=== PATIENT | female | born 1975 | race Caucasian/White ===

== ENCOUNTER 2023-12-27 05:13 | Day surgery (SDC) | payer OTHER, SELFPAY ==
[2023-12-27] VITALS (13 sets, daily range): BP systolic 110–129; BP diastolic 57–80; PULSE 63–80; RESP 14–20; TEMP 36.2–37.2; O2SAT 100
--- NOTE | ~2023-12-27 | CT_ITS ---
EXAMINATION: CT abdomen pelvis w con DATE: 12/27/2023 07:35 INDICATION: Right lower quadrant abdominal pain TECHNIQUE: Computed tomography (CT) of the abdomen and pelvis was performed with 100 CC Omnipaque 350 intravenous contrast. Automated exposure control and iterative reconstruction technique were employe d. Exam dose: 277.20 mGy-cm total exam DLP. COMPARISON: None. FINDINGS: Bilateral breast implants are noted. Prominent pectus excavatum. The lung bases are clear of infiltrate or consolidation. Normal heart size. No pericardial or pleural effusion. The liver, gallbladder, bile ducts, spleen, pancreas, pancreatic duct, and adrenal glands and kidneys are unremarkable. Prominent appendicolith, appendiceal wall thickening and appendiceal dilatation and periappendiceal f at stranding and thickening of the lateral conal fascia are consistent with acute appendicitis. There is mild free fluid in the right cul-de-sac. Status post hysterectomy. The urinary bladder is un remarkable. No bowel obstruction or intraperitoneal free air is detected. No suspicious osteolytic or osteoblastic lesions. IMPRESSION: Acute appendicitis Reviewed, dictated and finalized at [facility] Reviewed, dictated and finalized at [facility]. IMPRESSION: Acute appendicitis
[2023-12-27 05:48] LABS: Basophils Percent Auto 0.2 % (0.2-1.2); Eosinophils Percent Auto 0.2 % (0-4.4); Hematocrit 42.7 % (37.0-47.0); Hemoglobin 13.6 g/dL (12.0-15.0); Immature Granulocyte Absolute 0.03 K/mm3 (0.00-0.031); Immature Granulocyte Percent A 0.2 % (0-0.5); Lymphocytes Absolute Auto 1.15 K/mm3 (0.9-3.2); Lymphocytes Percent Auto 6.8 % (18.3-44.2); Mean Corpuscular HGB Conc 31.9 g/dl (32-36); Mean Corpuscular Volume 94.1 fl (80-100); Mean Platelet Volume 10.3 fl (7.4-10.4); Monocytes Absolute Auto 0.6 K/mm3 (0.1-0.6); Monocytes Percent Auto 3.4 % (2.6-8.5); Neutrophils Absolute Auto 15.1 K/mm3 (1.3-6.7); Neutrophils Percent Auto 89.2 % (45.5-73.1); Platelet Count Result 256 k/mm3 (150-375); Red Blood Count 4.54 M/mm3 (4.2-5.4); Red Cell Distribution Width 12.5 % (11.5-14.5); White Blood Count 16.9 K/mm3 (4.5-10.0)
[2023-12-27 05:51] LABS: Appearance Urine Clear (Clear); Bilirubin Urine Negative (Negative); Blood Urine Negative (Negative); Color Urine Yellow (Yellow); Glucose Urine UA Negative (Negative); Ketones Urine Trace mg/dL (Negative); Leukocyte Esterase Ur Negative LEU/UL (Negative); Nitrate Urine Negative (Negative); Protein Urine Negative (Negative); Specific Grav Ur 1.018 (1.001-1.035); Urobilinogen Urine 0.2 mg/dL (<2.0); pH Urine 6.5 (5.0-9.0)
[2023-12-27 05:57] LABS: Alanine Aminotransferase 27 U/L (6-35); Albumin Level 4.7 g/dL (3.5-5.1); Alkaline Phosphatase 54 U/L (38-126); Anion Gap 5 mmol/L (4-12); Aspartate Amino Transferase 38 U/L (14-36); Bilirubin,Total 0.7 mg/dL (0.2-1.3); Blood Urea Nitrogen 14 mg/dL (7-17); Calcium 9.8 mg/dL (8.4-10.2); Carbon Dioxide 28 mmol/L (22-30); Chloride 103 mmol/L (98-107); Estimated CRCL calculation 80 ml/min; Estimated Glomerular Filt Rate > 60; Glucose 137 mg/dL (65-110); Lipase 65 U/L (23-300); Potassium 3.7 mmol/L (3.4-5.0); Sodium 136 mmol/L (137-145)
[2023-12-27 06:00] LABS: Add Urine Microscopic? NO
[2023-12-27 06:27] LABS: Influenza A QL RT-PCR Negative (Negative); Influenza B QL RT-PCR Negative (Negative); RSV RNA, RT-PCR Negative (Negative); SARS-CoV-2 RNA PCR Negative (Negative)
--- NOTE | 2023-12-27 07:05 | ED.ABDPAIN ---
HPI - Abdominal Pain General Chief Complaint: Abdominal Pain Stated Complaint: abd pain, N/V Time Seen by Provider: 12/27/23 07:04 Source: patient History of Present Illness HPI narrative: 48 years old white female came to the emergency room by private car complaining of right lower quadrant pain started 8 hours ago. Associated with nausea, no vomiting or diarrhea. No history of abdominal surgery, currently on vitamins. She does not smoke or drink. Related Data Home Medications Medication Instructions Recorded Confirmed cetirizine 10 mg capsule (Zyrtec) 10 mg PO DAILY PRN 11/04/21 11/04/21 multivitamin with minerals 1 tablet PO DAILY 11/04/21 11/04/21 (Hair,Skin and Nails tablet) Allergies Allergy/AdvReac Type Severity Reaction Status Date / Time mold Allergy Unknown Unknown Verified 12/27/23 05:39 pollen extracts Allergy Unknown Unknown Verified 12/27/23 05:39 No Known Allergies Allergy Verified 12/27/23 05:39 Review of Systems Review of Systems: All systems reviewed & are unremarkable except as noted in HPI and below PMFSH Past Medical History Medical History Allergies Surgical History Surgical History History of partial hysterectomy History of surgery of uterus Cervical coniation S/P breast augmentation Family History Family History Grandparent Heart disease Cerebrovascular accident Social History Social History Smoking status: Never smoker Alcohol intake: current Substance use: never Do You Feel Safe in your Home?: Yes Lack of Transportation: No Lack of Food: Never True Current Housing: I Have Housing Concerned About Future Housing: No Difficulty Paying Gas/Electric Bills: No Difficulty Paying for Meds: No Currently Unemployed: No Education: Associate Degree Exam Narrative: General appearance: Well-developed, well-nourished Skin: Normal color Head: Normocephalic, nontraumatic Eyes: Clear conjunctiva ENT: Oropharynx normal, ears normal, nose normal Neck: Supple, nontender Chest and respiratory: Airway patent, no respiratory distress, no accessory muscle use Heart: Regular rate/rhythm Abdomen: Soft, do severe tenderness right lower quadrant, gardening, rebound, no organomegaly, quiet bowel sounds Vascular: Normal peripheral pulses, normal capillary refill. Musculoskeletal: Normal range of motion, nontender back Neurologic: Alert and oriented ?3, POWDER LINE REPAIRER is normal as tested, no gross motor deficit Course Reevaluation(s) Reevaluation #1: Pain improved after IV Dilaudid and Zofran Date: 12/27/23 Time: 08:40 Consultations Consultation #1: Dr. Gimenez Date: 12/27/23 Time: 08:41 Vital Signs Vital signs: Vital Signs Temperature 36.2 C L 12/27/23 05:13 Pulse Rate 66 12/27/23 05:13 Respiratory Rate 16 12/27/23 05:13 Blood Pressure 110/57 L 12/27/23 05:13 Pulse Oximetry 100 12/27/23 05:13 Oxygen Delivery Room Air 12/27/23 05:13 Temperature 37.2 C 12/27/23 08:10 Pulse Rate 78 12/27/23 08:10 Respiratory Rate 16 12/27/23 08:10 Blood Pressure 127/80 12/27/23 08:10 Pulse Oximetry 100 12/27/23 08:10 Oxygen Delivery Room Air 12/27/23 05:13 MDM - Abdominal Pain MDM Narrative Medical decision making narrative: Patient presents with right lower quadrant pain, Differential diagnosis appendicitis, diverticulitis, urinary tract infection, kidney stone, colitis, constipation Blood workup today showed WBC of 16.9 CT abdomen and pelvis
[2023-12-27] MEDS: HYDROmorphone HCL INJ (*CRX) 1 MG/ML SYR 0.5 MG IV PUSH (07:23)
[2023-12-27] MEDS: SODIUM CHLORIDE 0.9% IV 1,000 ML 999 ML IV CONT ×2 (07:23→08:59)
[2023-12-27] MEDS: ONDANSETRON INJ 4 MG/2 ML VIAL IV PUSH (07:24)
[2023-12-27] MEDS: PIPERACILLN/TAZ 3.375GM/NS50ML 3.375 GM/50 ML BAG IVPB (08:58)
--- NOTE | 2023-12-27 09:08 | WPDANESEPPF ---
Anes - Initial Pre Proc Eval Procedure: Operation Date: 12/27/23 09:30 Proposed Procedures p Laparoscopic Appendectomy - Jalil Gimenez MD Date/Time: 12/27/23 09:08 Surgeon: Jalil Gimenez MD Pre Op Diagnosis: abd pain, N/V Patient Data Age: 48 Gender: F Height: 1.68 m Weight: 59 kg Last Vital Signs Temp 37.2 C 12/27/23 08:10 Pulse 78 12/27/23 08:10 Resp 16 12/27/23 08:10 BP 127/80 12/27/23 08:10 Pulse Ox 100 12/27/23 08:10 O2 Del Method Room Air 12/27/23 05:13 Allergies Allergy/AdvReac Type Severity Reaction Status Date / Time mold Allergy Unknown Unknown Verified 12/27/23 05:39 pollen extracts Allergy Unknown Unknown Verified 12/27/23 05:39 No Known Allergies Allergy Verified 12/27/23 05:39 Home Medications Medication Instructions Recorded Confirmed Type cetirizine 10 mg capsule (Zyrtec) 10 mg PO DAILY PRN 11/04/21 11/04/21 History multivitamin with minerals 1 tablet PO DAILY 11/04/21 11/04/21 History (Hair,Skin and Nails tablet) Laboratory Tests 12/27/23 05:39 WBC 16.9 H K/mm3 (4.5-10.0) RBC 4.54 M/mm3 (4.2-5.4) Hgb 13.6 g/dL (12.0-15.0) Hct 42.7 % (37.0-47.0) MCV 94.1 fl (80-100) MCH 30.0 pg (26-34) MCHC 31.9 L g/dl (32-36) RDW 12.5 % (11.5-14.5) Plt Count 256 k/mm3 (150-375) MPV 10.3 fl (7.4-10.4) Immature Gran % (Auto) 0.2 % (0-0.5) Neut % (Auto) 89.2 H % (45.5-73.1) Lymph % (Auto) 6.8 L % (18.3-44.2) [place] % (Auto) 3.4 % (2.6-8.5) Eos % (Auto) 0.2 % (0-4.4) Baso % (Auto) 0.2 % (0.2-1.2) Lymph # (Auto) 1.15 K/mm3 (0.9-3.2) [place] # (Auto) 0.6 K/mm3 (0.1-0.6) Eos # (Auto) 0.0 K/mm3 (0-0.3) Baso # (Auto) 0.0 K/mm3 (0.0-0.1) Abs Immat Gran (auto) 0.03 K/mm3 (0.00-0.031) Absolute Neuts (auto) 15.1 H K/mm3 (1.3-6.7) Absolute Nucleated RBC 0.000 K/mm3 (0.0-0.012) Nucleated RBC % 0.0 % (0.0-0.2) Sodium 136 L mmol/L (137-145) Potassium 3.7 mmol/L (3.4-5.0) Chloride 103 mmol/L (98-107) Carbon Dioxide 28 mmol/L (22-30) Anion Gap 5 L mmol/L (4-12) BUN 14 mg/dL (7-17) Creatinine 0.70 mg/dL (0.7-1.0) Estim Creat Clear Calc 80 ml/min Estimated GFR > 60 (59 - ) Glucose 137 H mg/dL (65-110) Calcium 9.8 mg/dL (8.4-10.2) Total Bilirubin 0.7 mg/dL (0.2-1.3) AST 38 H U/L (14-36) ALT 27 U/L (6-35) Alkaline Phosphatase 54 U/L (38-126) Total Protein 7.0 g/dL (6.3-8.2) Albumin 4.7 g/dL (3.5-5.1) Lipase 65 U/L (23-300) Urine Color Yellow (Yellow) Urine Appearance Clear (Clear) Urine pH 6.5 (5.0-9.0) Ur Specific [place] 1.018 (1.001-1.035) Urine Protein Negative mg/dL (Negative) Urine Glucose (UA) Negative mg/dL (Negative) Urine Ketones Trace H mg/dL (Negative) Ur Blood (Man) Negative (Negative) Urine Nitrate Negative (Negative) Urine Bilirubin Negative (Negative) Urine Urobilinogen 0.2 mg/dL (<2.0) Leukocyte Esterase Rfl Negative [place]YNSEY/UL (Negative) Influenza A (RT-PCR) Negative (Negative) Influenza B (RT-PCR) Negative (Negative) RSV (RT-PCR) Negative (Negative) SARS-CoV-2 RNA (RT-PCR) Negative (Negative) Patient hx anesthesia problems: none Family hx anesthesia problems: none Results Review: All pre-operative results and documents have been reviewed as part of the pre-operative evaluation. [facility] Past Medical History Medical History Allergies Surgical History Surgical History History of partial hysterectomy History of surgery of uterus Cervical coniation S/P breast augmentation Family History Family History Grandparent Heart disease
--- NOTE | 2023-12-27 09:19 | WPDHPUPDATE1 ---
History and Physical Update Update Date/Time: 12/27/23 09:19 History and Physical has been reviewed, including an updated exam of the patient. There are NO changes in the patient's condition. Risks, benefits, and alternatives have been discussed and questions answered. Patient agrees to proceed with procedure.
--- NOTE | 2023-12-27 09:19 | PM.SD2 ---
Same Day Admit/Disch: HPI History of Present Illness Chief complaint: Acute appendicitis Narrative: Linette Wang is a 48 year old female who felt that there was something going on with her stomach for about 2 weeks. About midnight last night however she had mid abdominal pain that quickly moved to the right lower quadrant and just got worse. She was nauseated but did by vomit. She felt that she was feverish but did not take her temperature. Her right lower quadrant was extremely painful and exquisitely tender. She reports she almost passed out. She went to the emergency room. She was noted to have leukocytosis and exquisite tenderness in the right lower quadrant with guarding. Her CT scan showed acute appendicitis. She is taken to surgery now for laparoscopic appendectomy. [facility] Past Medical History Medical History Allergies Surgical History Surgical History History of partial hysterectomy History of surgery of uterus Cervical coniation S/P breast augmentation Family History Family History Grandparent Heart disease Cerebrovascular accident Social History Social History Smoking status: Never smoker Alcohol intake: current Substance use: never Do You Feel Safe in your Home?: Yes Lack of Transportation: No Lack of Food: Never True Current Housing: I Have Housing Concerned About Future Housing: No Difficulty Paying Gas/Electric Bills: No Difficulty Paying for Meds: No Currently Unemployed: No Education: Associate Degree Same Day Admit/Disch: Med Pre-admit Medications Home Medications Medication Instructions Recorded Confirmed Type cetirizine 10 mg capsule (Zyrtec) 10 mg PO DAILY PRN 11/04/21 11/04/21 History multivitamin with minerals 1 tablet PO DAILY 11/04/21 11/04/21 History (Hair,Skin and Nails tablet) ketorolac 10 mg tablet 10 mg PO Q6H 4 days #16 tabs 12/27/23 Rx oxycodone-acetaminophen 5 mg-325 0.5 - 1 tablet PO Q6H PRN pain #10 12/27/23 Rx mg tablet tabs Review of Systems Review of Systems All systems reviewed & are unremarkable except as noted in HPI and below (HPI and those items noted below) Constitutional Constitutional: Reports as per HPI, Reports chills and Reports fever(s) Cardiovascular Cardiovascular: Denies chest pain, Denies diaphoresis, Denies dyspnea and Denies paroxysmal nocturnal dyspnea Respiratory Respiratory: Denies chest congestion, Denies cough and Denies dyspnea Gastrointestinal Gastrointestinal: Reports as per HPI, Reports abdominal pain and Reports nausea Integumentary/Breasts Skin/Breast: Denies lesions and Denies rash DS: Data Data Completed and Pending Labs on day of discharge: Labs from last 24 hours 12/27/23 05:39 WBC 16.9 H RBC 4.54 Hgb 13.6 Hct 42.7 MCV 94.1 MCH 30.0 MCHC 31.9 L RDW 12.5 Plt Count 256 MPV 10.3 Immature Gran % (Auto) 0.2 Neut % (Auto) 89.2 H Lymph % (Auto) 6.8 L [place] % (Auto) 3.4 Eos % (Auto) 0.2 Baso % (Auto) 0.2 Lymph # (Auto) 1.15 [place] # (Auto) 0.6 Eos # (Auto) 0.0 Baso # (Auto) 0.0 Abs Immat Gran (auto) 0.03 Absolute Neuts (auto) 15.1 H Absolute Nucleated RBC 0.000 Nucleated RBC % 0.0 Sodium 136 L Potassium 3.7 Chloride 103 Carbon Dioxide 28 Anion Gap 5 L BUN 14 Creatinine 0.70 Estim Creat Clear Calc 80 Estimated GFR > 60 Glucose 137 H Calcium 9.8 Total Bilirubin 0.7 AST 38 H ALT 27 Alkaline Phosphatase 54 Total Protein 7.0 Albumin 4.7 Lipase 65 Urine Color Yellow Urine Appearance Clear Urine pH 6.5 Ur Specific [place] 1.018 Urine Protein Negative Urine Glucose (UA) Negative Urine Ketones Trace H Ur Blood (Man) Negative Urine Nitrate Negative Urine Bilirubin Negative Urine Urobilinogen 0.2 Leukocyte Ludivina
--- NOTE | 2023-12-27 09:26 | W.PM.PROC2 ---
Procedure Note - Detailed Date of Procedure 12/27/23 Pre-op Diagnosis Acute appendicitis Post-op Diagnosis Same Procedure Performed Laparoscopic appendectomy Surgeon Jalil Gimenez MD Free Lance Artist Jann WAGGONER Anesthesia General and Local Indications Patient started having severe abdominal pain that moved to the right lower quadrant last night about midnight. She was noted to have peritonitis with leukocytosis on exam. CT scan showed acute appendicitis. She is taken to surgery now for laparoscopic appendectomy. Findings Acute appendicitis,gangrenous distal half Description of Procedure Patient was taken to surgery and induced into general anesthesia. Abdomen is prepped and draped. Trocars were placed in the usual fashion using Edi.io optical trocars and a 5 mm camera. Patient was placed in Trendelenburg with the right-side elevated. The appendix was able to be via found easily and was elevated anteriorly. The distal half of the appendix was gangrenous but not perforated. Dissection of the mesoappendix was carried out and the appendiceal vessels including appendiceal artery were thoroughly cauterized and divided. The base of the appendix was skeletonized. A Vicryl endoloop was then used to ligate the appendix at its base. I amputated the appendix just above the ligature and cauterized the mucosa of the appendiceal stump. The appendix was placed immediately in an Endo-Catch bag. It was retrieved through the 10 11 left lower quadrant trocar. We then replaced the trocar and reviewed the areas of dissection as well as the appendiceal stump. All looked good with no sign of bleeding or other problems. We then evacuated CO2 and removed the trocar sleeves. Skin wounds were closed with subcuticular 4-0 Monocryl skin suture. The wounds were dressed with Exofin surgical adhesive. The patient was awakened and taken to recovery in good condition. Sponge needle counts were correct x2. Estimated Blood Loss -5 Drains No Packing No Pathology Yes (Appendix) Complications No immediate complications Condition Stable Disposition PACU [facility] Billing Surgery - Charge Forward: Surgery Billing (Laparoscopic appendectomy)
[2023-12-27] MEDS: BUPIVACAINE/EPINEPHRINE 0.5% 50 ML VIAL 30 ML INFILTRATE (09:44)
[2023-12-27] MEDS: LACTATED RINGERS 1,000 ML 30 ML IV CONT ×2 (10:10)
[2023-12-27] MEDS: oxyCODONE HCL (*CRX) 5 MG TAB IR PO (11:07)
== END 2023-12-27 12:02 | disposition home or self-care (01) ==
LOC: ANHED 08:42 → ANHSURGERY 08:57
PROVIDERS: Student in an Organized Health Care Education/Training Program; Emergency Provider Emergency Medicine; Visit Provider Surgery
PROC: 0DTJ4ZZ Resection of Appendix, Percutaneous Endoscopic Approach (ICD-10-PCS; CPT 44970; principal; 2023-12-27 09:30)
DX: K35.31 Acute appendicitis with localized peritonitis and gangrene, without perforation (principal); D72.829 Elevated white blood cell count, unspecified; Z98.890 Other specified postprocedural states; Z82.49 Family history of ischemic heart disease and other diseases of the circulatory system
CPT/HCPCS: 44970; 36415; 74177; 80053; 81003; 83690; 85025; 87637; 88304; 96361; 96374; 96375; 99285; A9270; J0330; J1100; J1170; J2405; J2543; J2704; J3010; J7030; J7120; Q9967

== ENCOUNTER 2025-03-07 14:07 | Outpatient (CLI) | payer BC, SELFPAY ==
--- NOTE | ~2025-03-07 | MM_ITS ---
EXAMINATION: MM scrn althea implant BI w ju HISTORY: Screening mammogram TECHNIQUE: Craniocaudal and mediolateral oblique 3-D tomosynthesis images with implant displacement a nd synthetic 2-D images were generated. Craniocaudal and mediolateral oblique views of the breasts wi thout implant displacement were obtained using full field digital mammography. CAD analysis was submi tted and interpreted. COMPARISON: No prior mammogram is available for comparison at this institution. BREAST PARENCHYMAL COMPOSITION: Dense: The breasts are extremely dense, which lowers the sensitivity of mammography. FINDINGS: There are no suspicious masses, calcifications or architectural distortion in the right huma ast to suggest malignancy. There is a focal asymmetry in the upper outer quadrant of the left breast, anterior third/periareolar location. There are bilateral saline implants. IMPRESSION: 1. Focal left breast asymmetry, upper outer quadrant, anterior third. 2. Additional mammographic views and possible breast ultrasound are recommended. BI-RADS Category 0: Incomplete: Needs additional imaging evaluation. Reviewed, dictated and finalized at location [] IMPRESSION: 1. Focal left breast asymmetry, upper outer quadrant, anterior third. 2. Additional mammographic views and possible breast ultrasound are recommended . BI-RADS Category 0: Incomplete: Needs additional imaging evaluation.
--- OUTSIDE RECORDS SUMMARY | 2025-03-07 15:27 | XMS_ITS | Encounter Summary ---
Author Organization [facility] Address [address] [place] [address] Care Team Providers Care Thermal Engineer Name Role Phone Alonso Silva DO Primary Care Provider Encounter Details Date Type Department Care Team (Late st Contact Info) Description 07/24/2008 Outpatient [facility] [address] [facility] [place] [address] [place] [id number] Alonso Silva DO [address] [place] [address] Routine General Medical Examination at a Health Care Facility Social History Tobacco Use Types Packs/Day Years Used Date Smoking Tobacco: Never Alcohol Use Standard Drinks/Week Comments No 0 (1 standard drink = 0.6 oz pur e alcohol) Comments No Sex and Gender Information Value Date Recorded Sex Assigned at Not on file Legal Sex Female 2:59 AM FONDANT COOKER Gender Identity Not on file Sexual Orientation Not on file documented as of this encounter Plan of Treatment Not on file documented as of this encounter Visit Diagnoses Diagnosis Routine general medical examination at a health care facility documented in this encounter Care Teams Thermal Engineer Relationship Specialty Start Date End Date Alonso Silva DO PCP - General 06/15/09 documented as of this encounter
--- OUTSIDE RECORDS SUMMARY | 2025-03-07 15:27 | XMS_ITS | Encounter Summary ---
Author Organization [facility] Address [address] [place] [address] Care Team Providers Care Gas Appliance Installer Name Role Phone Alonso Silva DO Primary Care Provider Encounter Details Date Type Department Care Team (Late st Contact Info) Description 06/21/2004 Outpatient Historical [facility] Glenn Sung MD [address] [place] [address] Social History Tobacco Use Types Packs/Day Years Used Date Smoking Tobacco: Never Assessed Comments Unknown Sex and Gender Information Value Date Recorded Sex Assigned at Not on file Legal Sex Female 2:59 AM BENCH HAND Gender Identity Not on file Sexual Orientation Not on file documented as of this encounter Plan of Treatment Not on file documented as of this encounter Visit Diagnoses Not on filedocumented in this encounter Care Teams Gas Appliance Installer Relationship Specialty Start Date End Date Alonso Silva DO PCP - General 06/15/09 documented as of this encounter
--- OUTSIDE RECORDS SUMMARY | 2025-03-07 15:27 | XMS_ITS | Encounter Summary ---
Author Organization [facility] Address [address] [place] [address] Care Team Providers Care Storage Battery Inspector And Tester Name Role Phone Alonso Silva DO Primary Care Provider Encounter Details Date Type Department Care Team (Latest Contact Info) Description 01/12/2002 Outpatient Historical [facility] [place] [address] [facility] [address] [place], [place] [id number] ANTEPARTUM HEMORR NOS-ANTEPAR (Primary Dx) Social History Tobacco Use Types Packs/Day Years Used Date Smoking Tobacco: Never Assessed Comments Unknown Sex and Gender Information Value Date Recorded Sex Assigned at Not on file Legal Sex Female 2:59 AM MANAGER WOUND Gender Identity Not on file Sexual Orientation Not on file documented as of this encounter Plan of Treatment Not on file documented as of this encounter Visit Diagnoses Diagnosis Unspecified antepartum hemorrhage, antepartum- Primary documented in this encounter Care Teams Storage Battery Inspector And Tester Relationship Specialty Start Date End Date Alonso Silva DO PCP - General 06/15/09 documented as of this encounter
--- OUTSIDE RECORDS SUMMARY | 2025-03-07 15:27 | XMS_ITS | Encounter Summary ---
Author Organization [facility] Address 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
--- OUTSIDE RECORDS SUMMARY | 2025-03-07 15:27 | XMS_ITS | Referral Summary ---
Author Organization [facility] Address [address] [place] [address] Care Team Providers Care Pencil Sorter Name Role Phone Waqar Renae MD Primary Care Provider [phone] Encounters Date Type Department Care Team Description 02/25/2025 12:00 PM CDT Office Visit [facility] [place] [address] [facility] [place] [address] Kelly Santiago NP Sore throat (Primary Dx) from Last 3 Months Allergies No known active allergies Medications apremilast (Otezla) 30 mg tablet Take 30 mg by mouth 2 (two) times a day Active cetirizine (ZyrTEC) 10 mg tablet Take 10 mg by mouth daily Active Active Problems Problem Noted Date Diagnosed Date Raynaud's disease, idiopathic 12/16/2021 Assessment & Plan (12/16/2021 4:46 PM CDT): Patient reports symptoms for the past 2-3 years, progressively worsening; will evaluate for possible other causes, starting with thyroid, follow-up with panel; no clear reason, will continue to monitor if treatment is required Other specified episodic mood disorder 8 Immunizations Immunization Administration Dates Next Due Influenza, Unspecified 12/16/2021(Deferr ed: Patient Refused),12/16/2021(Deferred: Patient Refused),09/28/2020(Deferred: Patient Refused),09/28/2020(Deferred: Patient Refused) Social History Tobacco Use Types Packs/Day Years Used Date Smoking Tobacco: Never Smokeless Tobacco: Never AUDIT-C Answer Date Recorded Q1: How often do you have a drink containing alc ohol? Monthly or less 12/16/2021 Q2: How many drinks containi ng alcohol do you have on a typical day when you are drinking? 1 or 2 12/16/2021 Q3: How often do you have si x or more drinks on one occasion? Never 12/16/2021 PHQ-2 Answer Date Recorded PHQ-2 Total Score (If total score is 3 or more points, staff should administer the PHQ-9) 0 12/16/2021 Exercise Vital Sign Answer Date Recorde d On average, how many days pe r week do you engage in moderate to strenuous exercise (like a brisk walk)? 4 days 12/16/2021 On average, how many minutes do you engage in exercise at this level? 30 min 12/16/2021 Comments Unknown Sex and Gender Information Value Date Recorded Sex Assigned at Not on file Legal Sex Female 4:18 PM FORESTRY CREW CHIEF Gender Identity Not on file Sexual Orientation Not on file Last Filed Vital Signs Vital Sign Reading Time Taken Comments Blood Pressure 122/60 02/25/2025 11:49 AM CDT Pulse 70 02/25/2025 11:49 AM CDT Temperature 36.9 C (98.4 F) 02/25/2025 11:49 AM CDT Respiratory Rate 16 02/25/2025 11:49 AM CDT Oxygen Saturation 99% 02/25/2025 11:49 AM CDT Inhaled Oxygen Concentration - - Weight 57.6 kg (127 lb) 02/25/2025 11:49 AM CDT Height 165.1 cm (5' 5) 02/25/2025 11:49 AM CDT Body Mass Index 21.13 02/25/2025 11:49 AM CDT Plan of Treatment Not on file Procedures Procedure Name Priority Date/Time Associated Diagnosis Comments POCT RAPID STREP Routine 02/25/2025 12:0 7 PM CDT Sore throat from Last 3 Months Results * POCT rapid strep A (02/25/2025 12:07 PM CDT) Rapid Strep A, POC Negative Negative Swab 02/25/2025 12:0 7 PM CDT Chloe Pamela RIB MATCHER AND FITTER POINT OF CARE TEST WINIFRED JUAREZ Final Result from Last 3 Months Insurance [facility] Care Teams Pencil Sorter Relationship Specialty Start Date End Date [place] [address] [address] [place] [id number] PCP - General Family Medicine 09/17/21
--- OUTSIDE RECORDS SUMMARY | 2025-03-07 15:27 | XMS_ITS | Encounter Summary ---
Author Organization [facility] Address [address] [place] [address] Care Team Providers Care Photoflash Powder Mixer Name Role Phone Alonso Silva DO Primary Care Provider Encounter Details Date Type Department Care Team (Late st Contact Info) Description 12/11/2006 Outpatient Historical [facility] Migel Garcia MD NO ADDRESS ON FILE Social History Tobacco Use Types Packs/Day Years Used Date Smoking Tobacco: Never Assessed Comments Unknown Sex and Gender Information Value Date Recorded Sex Assigned at Not on file Legal Sex Female 2:59 AM ACCOUNTS PAYABLE REPRESENTATIVE Gender Identity Not on file Sexual Orientation Not on file documented as of this encounter Plan of Treatment Not on file documented as of this encounter Visit Diagnoses Not on filedocumented in this encounter Care Teams Photoflash Powder Mixer Relationship Specialty Start Date End Date Alonso Silva DO PCP - General 06/15/09 documented as of this encounter
--- OUTSIDE RECORDS SUMMARY | 2025-03-07 15:27 | XMS_ITS | Encounter Summary ---
Author Organization [facility] Address [address] [place] [address] Care Team Providers Care Combining Machine Operator Name Role Phone Alonso Silva DO Primary Care Provider Encounter Details Date Type Department Care Team (Latest Contact Info) Description 03/18/2000 Outpatient Historical HIS [facility] DOLORES Costa II, [place] [address] [facility] [address] [place] [address] Supervision of other normal (Primary Dx) Social History Tobacco Use Types Packs/Day Years Used Date Smoking Tobacco: Never Assessed Comments Unknown Sex and Gender Information Value Date Recorded Sex Assigned at Not on file Legal Sex Female 2:59 AM PORTFOLIO LEAD Gender Identity Not on file Sexual Orientation Not on file documented as of this encounter Plan of Treatment Not on file documented as of this encounter Visit Diagnoses Diagnosis Supervision of other normal - Primary documented in this encounter Care Teams Combining Machine Operator Relationship Specialty Start Date End Date Alonso Silva DO PCP - General 06/15/09 documented as of this encounter
--- OUTSIDE RECORDS SUMMARY | 2025-03-07 15:27 | XMS_ITS | Encounter Summary ---
Author Organization [facility] Address [address] [place] [address] Care Team Providers Care Deck Officer Name Role Phone Alonso Silva DO Primary Care Provider Encounter Details Date Type Department Care Team (Latest Contact Info) Description 07/30/2003 Inpatient Historical HIS PATIENT IN A BED [facility] [address] 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
--- OUTSIDE RECORDS SUMMARY | 2025-03-07 15:27 | XMS_ITS | Encounter Summary ---
Author Organization [facility] Address [address] [place] [address] Care Team Providers Care Shear Grinder Operator Helper Name Role Phone Alonso Silva DO Primary Care Provider Encounter Details Date Type Department Care Team (Latest Contact Info) Description 05/14/2006 Inpatient Historical HIS [facility] Marcella Dunbar MD NO ADDRESS ON FILE Other Specified Genital Prolapse (Primary Dx) Social History Tobacco Use Types Packs/Day Years Used Date Smoking Tobacco: Never Assessed Comments Unknown Sex and Gender Information Value Date Recorded Sex Assigned at Not on file Legal Sex Female 2:59 AM SOCIAL WORK PROGRAM COORDINATOR Gender Identity Not on file Sexual Orientation Not on file documented as of this encounter Plan of Treatment Not on file documented as of this encounter Procedures Procedure Name Priority Date/Time Associated Diagnosis Comments HEMOGLOBIN AND HEMATOCRIT Routine 05/15/2006 4:30 PM CDT CBC WITH DIFFERENTIAL Routine 05/15/2006 5:20 AM CDT CBC WITH DIFFERENTIAL Routine 05/15/2006 5:20 AM CDT HEMOGLOBIN AND HEMATOCRIT Routine 05/14/2006 8:06 PM CDT POC , URINE Routine 05/14/2006 9:16 AM CDT HEMOGLOBIN AND HEMATOCRIT Routine 05/08/2006 1:59 PM CDT documented in this encounter Results * (ABNORMAL) HEMOGLOBIN AND HEMATOCRIT (05/15/2006 4:30 PM CDT) HEMOGLOBIN 11.6(L) 11.8 - 14.8 g/dL INTERFACE SYSTEM HEMATOCRIT 36.0 35.5 - 44.0 % INTERFACE SYSTEM 05/15/2006 4:30 PM CDT Marcella Dunbar MD HEMATOLOGY ORDERAB LES Final Result Performing Organization Address [facility] de Phone Number INTERFACE SYSTEM Refer to clinic/hospital department * (ABNORMAL) CBC WITH DIFFERENTIAL (05/15/2006 5:20 AM CDT) NEUTROPHILS 83(H) 45 - 70 % INTERFAC E SYSTEM LYMPHOCYTES 11(L) 16 - 45 % INTERFAC E SYSTEM MONOCYTES 6 3 - 13 % INTERFACE SYSTEM EOSINOPHILS 0 0 - 7 % INTERFAC E SYSTEM BASOPHILS 0 0 - 2 % INTERFACE SYSTEM NEUTROPHIL ABSOLUTE 8.70(H) 1.90 - 7.00 K/uL INTERFACE SYSTEM LYMPHOCYTE ABSOLUTE 1.13 0.70 - 4.50 K/uL INTERFACE SYSTEM MONOCYTE ABSOLUTE 0.61 0.10 - 1.30 K/uL INTERFACE SYSTEM EOSINOPHIL ABSOLUTE 0.00 0.00 - 0.70 K/uL INTERFACE SYSTEM BASOPHILS ABSOLUTE 0.01 0.00 - 0.20 K/uL INTERFACE SYSTEM 05/15/2006 5:20 AM CDT Tennille Baez HEMATOLOGY ORDERABLES Final Resu lt Performing Organization Address [facility] de Phone Number INTERFACE SYSTEM Refer to clinic/hospital department * (ABNORMAL) CBC WITH DIFFERENTIAL (05/15/2006 5:20 AM CDT) WBC 10.5(H) 4.0 - 9.8 K/uL INTERFACE SYSTEM RBC 4.01 3.90 - 4.90 M/uL INTERFACE SYSTEM HEMOGLOBIN 11.8 11.8 - 14.8 g/dL INTERFACE SYSTEM HEMATOCRIT 35.6 35.5 - 44.0 % INTERFACE SYSTEM MCV 88.8 82.0 - 99.0 fL INTERFACE SYSTEM MCH 29.4 27.2 - 32.6 pg INTERFACE SYSTEM MCHC 33.1 31.5 - 35.5 % INTERFACE SYSTEM RDW 12.5 11.5 - 14.5 % INTERFACE SYSTEM RDW-STDEV 40.5 37.1 - 48.7 fL INTERFACE SYSTEM PLATELETS 200 140 - 350 K/uL INTERFACE SYSTEM MPV 11.4 9.3 - 12.4 fL INTERFACE SYSTEM 05/15/2006 5:20 AM CDT Tennille Steelreba HEMATOLOGY ORDERABLES Final Resu lt Performing Organization Address City/[facility] Co de Phone Number INTERFACE SYSTEM Refer to clinic/hospital department * HEMOGLOBIN AND HEMATOCRIT (05/14/2006 8:06 PM CDT) HEMOGLOBIN 12.7 11.8 - 14.8 g/dL INTERFACE SYSTEM HEMATOCRIT 38.1 35.5 - 44.0 % INTERFACE SYSTEM 05/14/2006 8:06 PM CDT Tennille Nestor HEMATOLOGY ORDERABLES Final Resu lt Performing Organization Address City/[facility] Co de Phone Number INTERFACE SYSTEM Refer to clinic/hospital department * POC , URINE (05/14/2006 9:16 AM CDT) HCG QUAL URINE Negative Negative INTER FACE SYSTEM SPECIFIC GRAVITY UA 1.020 1.001 - 1.035 INTERFACE SYSTEM 05/14/2006 9:16 AM CDT Marcella Dunbar MD POINT OF CARE TEST ING Final Result Performing Organization Address [facility] Co de Phone Number INTERFACE SYSTEM Refer to clinic/hospital department * HEMOGLOBIN AND HEMATOCRIT (05/08/2006 1:59 PM CDT) HEMOGLOBIN 13.0 11.8 - 14.8 g/dL INTERFACE SYSTEM HEMATOCRIT 39.5 35.5 - 44.0 % INTERFACE SYSTEM 05/08/2006 1:59 PM CDT Marcella Dunbar MD HEMATOLOGY ORDERAB LES Final Result INTERFACE SYSTEM Refer to clinic/hospital department documented in this encounter Visit Diagnoses Diagnosis Other specified genital prolapse(618.89)- Primary Other specified genital prolapse documented in this encounter Care Teams Shear Grinder Operator Helper Relationship Specialty Start Date End Date Alonso Silva DO PCP - General 06/15/09 documented as of this encounter
--- OUTSIDE RECORDS SUMMARY | 2025-03-07 15:27 | XMS_ITS | Encounter Summary ---
Author Organization [facility] Address [address] [place] [address] Care Team Providers Care Gift Manager Name Role Phone Alonso Silva DO Primary Care Provider Encounter Details Date Type Department Care Team (Latest Contact Info) Description 04/19/2002 Inpatient Historical HIS PATIENT IN A BED [facility], [place] [address] [facility] [address] [place], [place] [id number] OTHER CURR COND-DELIVERED (Primary Dx) Social History Tobacco Use Types Packs/Day Years Used Date Smoking Tobacco: Never Assessed Comments Unknown Sex and Gender Information Value Date Recorded Sex Assigned at Not on file Legal Sex Female 2:59 AM DIRECTOR OPERATING ROOM Gender Identity Not on file Sexual Orientation Not on file documented as of this encounter Plan of Treatment Not on file documented as of this encounter Visit Diagnoses Diagnosis Other current maternal conditions classifiable elsewhere, with delivery- Primary documented in this encounter Care Teams Gift Manager Relationship Specialty Start Date End Date Alonso Silva DO PCP - General 06/15/09 documented as of this encounter
--- OUTSIDE RECORDS SUMMARY | 2025-03-07 15:27 | XMS_ITS | Encounter Summary ---
Author Organization [facility] Address [address] [place] [address] Care Team Providers Care Trade Show Manager Name Role Phone Alonso Silva DO Primary Care Provider Encounter Details Date Type Department Care Team (Latest Contact Info) Description 01/08/2007 Outpatient Historical HIS [facility] DOLORES [place], [place] [address] [place] [address] Lump or Mass in Breast (Primary Dx) Social History Tobacco Use Types Packs/Day Years Used Date Smoking Tobacco: Never Assessed Comments Unknown Sex and Gender Information Value Date Recorded Sex Assigned at Not on file Legal Sex Female 2:59 AM PROGRAM PLANNER Gender Identity Not on file Sexual Orientation Not on file documented as of this encounter Plan of Treatment Not on file documented as of this encounter Visit Diagnoses Diagnosis Lump or mass in breast- Primary documented in this encounter Care Teams Trade Show Manager Relationship Specialty Start Date End Date Alonso Silva DO PCP - General 06/15/09 documented as of this encounter
--- OUTSIDE RECORDS SUMMARY | 2025-03-07 15:27 | XMS_ITS | Encounter Summary ---
Author Organization [facility] Address [address] [place] [address] Care Team Providers Care Fixture Builder Name Role Phone Alonso Silva DO Primary Care Provider Encounter Details Date Type Department Care Team (Latest Contact Info) Description 10/10/1999 Outpatient Historical HIS [facility] DOLORES Costa II, [place] [address] [facility] [address] [place] [address] Supervision of other normal (Primary Dx) Social History Tobacco Use Types Packs/Day Years Used Date Smoking Tobacco: Never Assessed Comments Unknown Sex and Gender Information Value Date Recorded Sex Assigned at Not on file Legal Sex Female 2:59 AM MRI TECHNOLOGIST Gender Identity Not on file Sexual Orientation Not on file documented as of this encounter Plan of Treatment Not on file documented as of this encounter Visit Diagnoses Diagnosis Supervision of other normal - Primary documented in this encounter Care Teams Fixture Builder Relationship Specialty Start Date End Date Alonso Silva DO PCP - General 06/15/09 documented as of this encounter
--- OUTSIDE RECORDS SUMMARY | 2025-03-07 15:27 | XMS_ITS | Clinical Summary ---
Author Organization [facility] Address [address] [place] [address] Phone Care Team Providers Care Nurse Esthetician Name Role Phone Provider, None Primary Care Provider Unavailabl e Allergies No known active allergies Medications No known medications Social History Tobacco Use Types Packs/Day Years Used Date Smoking Tobacco: Never Smokeless Tobacco: Never Comments No Sex and Gender Information Value Date Recorded Sex Assigned at Not on file Legal Sex Female 9:27 AM CDT Gender Identity Not on file Sexual Orientation Not on file Last Filed Vital Signs Vital Sign Reading Time Taken Comments Blood Pressure 96/72 09/06/2020 3:55 PM INCIDENT HANDLER Pulse 63 09/06/2020 3:55 PM INCIDENT HANDLER Temperature 36.4 C (97.6 F) 09/06/2020 3:55 PM INCIDENT HANDLER Respiratory Rate - - Oxygen Saturation 95% 09/06/2020 3:55 PM INCIDENT HANDLER Inhaled Oxygen Concentration - - Weight - - Height - - Body Mass Index - - Plan of Treatment Health Maintenance Due Date Last Done Comments Hepatitis C Virus (HCV) Screening 1976 TdaP Immunization 1976 Hepatitis B Immunization (1 of 3 - 19+ 3-dose series) 1995 Cologuard 2021 Colonoscopy 2021 Colorectal Cancer Screening 2021 Immunochemical Fecal Occult Blood 2021 SARS-COV-2 Immunization ( - season) 2024 11/30/2020 Influenza Immunization (Seas on Ended) 2025 Respiratory Syncytial Virus (RSV) Immunization (Adult) (1 - 1-dose 75+ series) 2051 Human Papillomavirus (HPV) Immunization Aged Out No longer eligible b ased on patient's age to complete this topic Meningococcal Immunization (ACWY) Aged Out No longer eligible based on patient's age to complete this topic Pneumococcal Immunization Combined Aged Out No longer eligible based on patient's age to complete this topic Rotavirus Immunization Aged Out No lo nger eligible based on patient's age to complete this topic Insurance SHARED software design analyst Care Teams Nurse Esthetician Relationship Specialty Start Date End Date Provider, Doreen GUPTA PCP - General 09/06/20
--- OUTSIDE RECORDS SUMMARY | 2025-03-07 15:27 | XMS_ITS | Encounter Summary ---
Author Organization [facility] Address [address] [place] [address] Care Team Providers Care Inverform Machine Operator Name Role Phone Alonso Silva DO Primary Care Provider Encounter Details Date Type Department Care Team (Latest Contact Info) Description 03/15/2003 Outpatient Historical HIS PATIENT IN A BED [facility], [place] [address] [facility] [address] [place] [address] HEMORR EARLY PREG-ANTEPART (Primary Dx) Social History Tobacco Use Types Packs/Day Years Used Date Smoking Tobacco: Never Assessed Comments Unknown Sex and Gender Information Value Date Recorded Sex Assigned at Not on file Legal Sex Female 2:59 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
--- OUTSIDE RECORDS SUMMARY | 2025-03-07 15:27 | XMS_ITS | Encounter Summary ---
Author Organization [facility] Address [address] [place] [address] Care Team Providers Care Filling Station Equipment Mechanic Name Role Phone Alonso Silva DO Primary Care Provider Encounter Details Date Type Department Care Team (Latest Contact Info) Description 06/21/2003 Outpatient Historical HIS PATIENT IN A BED [place], Marcella Smiley MD [place] [address] [facility] [address] [place] [address] THRT NILSA LABOR-ANTEPART (Primary Dx) Social History Tobacco Use Types Packs/Day Years Used Date Smoking Tobacco: Never Assessed Comments Unknown Sex and Gender Information Value Date Recorded Sex Assigned at Not on file Legal Sex Female 2:59 AM STUDENT FINANCIAL SERVICES COUNSELOR Gender Identity Not on file Sexual Orientation Not on file documented as of this encounter Plan of Treatment Not on file documented as of this encounter Visit Diagnoses Diagnosis Threatened premature labor, antepartum(644.03)- Primary Threatened premature labor, antepartum documented in this encounter Care Teams Filling Station Equipment Mechanic Relationship Specialty Start Date End Date Alonso Silva DO PCP - General 06/15/09 documented as of this encounter
--- OUTSIDE RECORDS SUMMARY | 2025-03-07 15:27 | XMS_ITS | Clinical Summary ---
Author Organization [facility] Address [address] [place] [address] Care Team Providers Care Salad Maker Name Role Phone Alonso Silva DO Primary Care Provider Source Comments [facility],non-owned Affiliates and Associated Physician Practices is amultiple site organization consisting of ambulatory clinics and hospital sitesin [place], [place], [place] and [place]. This disclosure is being madepursuant to the Care Everywhere program and may not contain all information available regarding this patient. Last updated 18.[facility] Allergies No known active allergies Medications * Be aware that medications may not be up to date on this document. Alwaysverify current medications with the patient. No known medications Social History Tobacco Use Types Packs/Day Years Used Date Smoking Tobacco: Never Smokeless Tobacco: Never Comments Unknown Sex and Gender Information Value Date Recorded Sex Assigned at Not on file Legal Sex Female 1:08 PM VP HUMAN RESOURCES Gender Identity Not on file Sexual Orientation Not on file Last Filed Vital Signs Vital Sign Reading Time Taken Comments Blood Pressure 112/70 05/06/2017 12:46 PM CDT Pulse 62 05/06/2017 12:46 PM CDT Temperature 37 C (98.6 F) 05/06/2017 12:46 PM CDT Respiratory Rate - - Oxygen Saturation - - Inhaled Oxygen Concentration - - Weight 56.7 kg (125 lb) 05/06/2017 12:46 PM CDT Height 167.6 cm (5' 6) 05/06/2017 12:46 PM CDT Body Mass Index 20.18 05/06/2017 12:46 PM CDT Plan of Treatment Health Maintenance Due Date Last Done Comments COLOGUARD (AGES 45-75) - COL ON CA SCREENING 1976 COLON MONITORING 1976 COLONOSCOPY - COLON CA SCREENING 1976 CT COLONOGRAPHY - COLON CA SCREENING 1976 Colorectal Cancer Screening 1976 FIT - COLON CA SCREENING 1976 FLEX SIG - COLON CA SCREENING 1976 LIPID TESTING 1976 MAMMOGRAM 1976 PAP SMEAR 1976 HIV SCREENING 1991 HEPATITIS C SCREENING 03/13/1994 DTAP/TDAP/TD VACCINES (1 - Tdap) 1995 HEPATITIS B VACCINE (1 of 3 - 19+ 3-dose series) 1995 COVID-19 VACCINE ( - 2023-2 5 season) 2024 DEPRESSION SCREENING 09/28/2024 INFLUENZA VACCINE (Season Ended) 2025 ZOSTER VACCINE (1 of 2) 2026 HIB VACCINE Aged Out No longer eligi ble based on patient's age to complete this topic HPV VACCINE Aged Out No longer eligi ble based on patient's age to complete this topic MENINGOCOCCAL (Group B) VACC INE SHARED DECISION-MAKING Aged Out No longer eligibl e based on patient's age to complete this topic MENINGOCOCCAL GROUPS A/C/Y/W VACCINE Aged Out No longer eligible b ased on patient's age to complete this topic PNEUMOCOCCAL VACCINE Aged Out No long er eligible based on patient's age to complete this topic Insurance [employer] Member Subscriber Plan / Payer (Ef fective for All Dates) Name:Kellen Wang Relation to Subscriber:Self Name:Kellen Wang Payer ID:[id number] (NAIC) Group ID:[id number] Type:PPO SELF PAY NO INSURANCE Member Subscriber Plan / Payer (Ef fective for All Dates) Name:Kellen Wang Susan Member ID:Not on file Relation to Subscriber:Not on file Name:KELLEN WANG Subscriber ID:Not on file (Home) Address: [address] [place] [phone] Payer ID:Not on file Group ID:Not on file Type:Self Pay Address: [place], [place] C[employer] Member Subscriber Plan / Payer (Ef fective for All Dates) Name:Kellen Wang Susan Relation to Subscriber:Self Name:Kellen Wang Susan Payer ID:[id number] (NAIC) Group ID:[id number] Type:PPO SELF PAY NO INSURANCE Member Subscriber Plan / Payer (Ef fective for All Dates) Name:Kellen Wang Susan Member ID:Not on file Relation to Subscriber:Not on file Name:KELLEN WANG Subscriber ID:Not on file (Home) Address: [address] [place] [phone] Payer ID:Not on file Group ID:Not on file Type:Self Pay Address: [place], [place] [employer] Member Subscriber Plan / Payer (Ef fective for All Dates) Name:Kellen Wang Susan Relation to Subscriber:Self Name:Kellen Wang Susan Payer ID:[id number] (NAIC) Group ID:[id number] Type:PPO SELF PAY NO INSURANCE Member Subscriber Plan / Payer (Ef fective for All Dates) Name:Kellen Wang Member ID:Not on file Relation to Subscriber:Not on file Name:KELLEN WANG Subscriber ID:Not on file (Home) Address: [address] [place] [phone] Payer ID:Not on file Group ID:Not on file Type:Self Pay Address: [place], [place] Care Teams Salad Maker Relationship Specialty Start Date End Date Alonso Silva DO [address] [place] [id number] PCP - General Internal Medicine 08/28/16
--- OUTSIDE RECORDS SUMMARY | 2025-03-07 15:27 | XMS_ITS | Encounter Summary ---
Author Organization [facility] Address [address] [place] [address] Care Team Providers Care Dry Cell Assembly Supervisor Name Role Phone Alonso Silva DO Primary Care Provider Encounter Details Date Type Department Care Team (Latest Contact Info) Description 02/28/2000 Outpatient Historical HIS [facility] DOLORES Costa II, [place] [address] [facility] [address] [place] [address] Abnormal maternal glucose tolerance, complicating , childbirth, or the puerperium, unspecified as to episode of care (Primary Dx) Social History Tobacco Use Types Packs/Day Years Used Date Smoking Tobacco: Never Assessed Comments Unknown Sex and Gender Information Value Date Recorded Sex Assigned at Not on file Legal Sex Female 2:59 AM SUGARCANE PLANTER Gender Identity Not on file Sexual Orientation Not on file documented as of this encounter Plan of Treatment Not on file documented as of this encounter Visit Diagnoses Diagnosis Abnormal maternal glucose tolerance, complicating , childbirth, or the puerperium, unspecified as to episode of care- Primary documented in this encounter Care Teams Dry Cell Assembly Supervisor Relationship Specialty Start Date End Date Alonso Silva DO PCP - General 06/15/09 documented as of this encounter
--- OUTSIDE RECORDS SUMMARY | 2025-03-07 15:27 | XMS_ITS | Encounter Summary ---
Author Organization [facility] Address [address] [place] [address] Care Team Providers Care Library Technician Name Role Phone Alonso Silva DO Primary Care Provider Encounter Details Date Type Department Care Team (Latest Contact Info) Description 07/02/2000 Outpatient Historical HIS [facility],NON-PATIENT [facility] [place], [place] [address] [facility] [address] [place] [address] Routine follow-up (Primary Dx) Social History Tobacco Use Types Packs/Day Years Used Date Smoking Tobacco: Never Assessed Comments Unknown Sex and Gender Information Value Date Recorded Sex Assigned at Not on file Legal Sex Female 2:59 AM BRADLEY LINEBACKER CREWMEMBER Gender Identity Not on file Sexual Orientation Not on file documented as of this encounter Plan of Treatment Not on file documented as of this encounter Visit Diagnoses Diagnosis Routine follow-up- Primary documented in this encounter Care Teams Library Technician Relationship Specialty Start Date End Date Alonso Silva DO PCP - General 06/15/09 documented as of this encounter
--- OUTSIDE RECORDS SUMMARY | 2025-03-07 15:27 | XMS_ITS | Encounter Summary ---
Author Organization [facility] Address [address] [place] [address] Care Team Providers Care Forensic Psychiatrist Name Role Phone Alonso Silva DO Primary Care Provider Encounter Details Date Type Department Care Team (Latest Contact Info) Description 05/29/2005 Inpatient Historical HIS PATIENT IN A BED DunbarMarcella sarah MD NO ADDRESS ON FILE NORMAL DELIVERY (Primary Dx) Social History Tobacco Use Types Packs/Day Years Used Date Smoking Tobacco: Never Assessed Comments Unknown Sex and Gender Information Value Date Recorded Sex Assigned at Not on file Legal Sex Female 2:59 AM GYPSUM ROOFER Gender Identity Not on file Sexual Orientation Not on file documented as of this encounter Plan of Treatment Not on file documented as of this encounter Visit Diagnoses Diagnosis Normal delivery- Primary documented in this encounter Care Teams Forensic Psychiatrist Relationship Specialty Start Date End Date Alonso Silva DO PCP - General 06/15/09 documented as of this encounter
--- OUTSIDE RECORDS SUMMARY | 2025-03-07 15:27 | XMS_ITS | Encounter Summary ---
Author Organization [facility] Address [address] [place] [address] Care Team Providers Care Electrical Engineering Director Name Role Phone Alonso Silva DO Primary Care Provider Encounter Details Date Type Department Care Team (Latest Contact Info) Description 05/27/2000 Inpatient Historical HIS PATIENT IN A BED [facility] [address] [facility] [address] [place], [place] [id number] Unspecified indication for care or intervention related to labor and delivery, delivered (Primary Dx) Social History Tobacco Use Types Packs/Day Years Used Date Smoking Tobacco: Never Assessed Comments Unknown Sex and Gender Information Value Date Recorded Sex Assigned at Not on file Legal Sex Female 2:59 AM HEALTH SERVICE WORKER Gender Identity Not on file Sexual Orientation Not on file documented as of this encounter Plan of Treatment Not on file documented as of this encounter Visit Diagnoses Diagnosis Unspecified indication for care or intervention related to labor and delivery, delivered- Primary documented in this encounter Care Teams Electrical Engineering Director Relationship Specialty Start Date End Date Alonso Silva DO PCP - General 06/15/09 documented as of this encounter
--- OUTSIDE RECORDS SUMMARY | 2025-03-07 15:27 | XMS_ITS | Clinical Summary ---
Author Organization [address] Address [address] [place] [address] Care Team Providers Care Transit Planner Name Role Phone Waqar Renae MD Primary Care Provider [phone] [phone] Allergies No known active allergies Medications apremilast [...] required Other specified episodic mood disorder 8 Encounters Date Type Department Care Team Description 02/25/2025 12:00 PM CDT Office Visit [facility] Count Includes [facility] [place] [address] [facility] [place] [address] Kelly Santiaog NP Sore throat (Primary Dx) from Last 3 Months Immunizations Immunization Administration Dates Next Due Influenza, Unspecified 12/16/2021(Deferr ed: Patient Refused),12/16/2021(Deferred: Patient Refused),09/28/2020(Deferred: Patient Refused),09/28/2020(Deferred: Patient Refused) Surgical History Surgery Date Site/Laterality Comments LAPAROSCOPIC TOTAL HYSTERECTOMY Family History Medical History Relation Name Comments Diabetes Mother Hypertension Mother Relation Name Status Comments Mother Social History Tobacco Use Types Packs/Day Years [...] on file 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 Gender Identity Not on file Sexual Orientation Not on file Obstetrics History Last Filed Vital Signs Vital Sign Reading [...] 02/25/2025 11:49 AM CDT Plan of Treatment Health Maintenance Due Date Last Done Comments Breast Cancer Screening-Mammogram 1976 Cervical Cancer Screening 1976 Colon Cancer Screening-DNA Stool 1976 Hepatitis C Screening 1976 DTaP/Tdap/Td Vaccine (1 - Tdap) 1987 Hepatitis B Screening 1994 Regular Well Visit/Exam 18-64 1994 Depression Screening 12/16/2022 12/16/2021 Covid-19 Vaccine (3 - 2023-2 5 season) 2024 11/04/2021, 11/30/2020 Influenza Vaccine (Season Ended) 2025 Pneumococcal vaccine <65 Aged Out No longer eligible based on patient's age to complete this topic Procedures Procedure Name Priority Date/Time Associated Diagnosis Comments POCT RAPID STREP Routine 02/25/2025 12:0 7 PM CDT Sore throat from Last 3 Months Results * POCT rapid strep A (02/25/2025 12:07 PM CDT) Rapid Strep A, POC Negative Negative Swab 02/25/2025 12:0 7 PM CDT Kelly Santiago SUPERVISOR SAFETY DEPOSIT POINT OF CARE TEST WINIFRED JUAREZ Final Result from Last 3 Months Insurance [facility] Care Teams Transit Planner Relationship Specialty Start Date End Date Waq[place] [address] [address] PCP - General Family Medicine 09/17/21
--- OUTSIDE RECORDS SUMMARY | 2025-03-07 15:27 | XMS_ITS | Encounter Summary ---
Author Organization [facility] Address 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
--- OUTSIDE RECORDS SUMMARY | 2025-03-07 15:27 | XMS_ITS | Encounter Summary ---
Author Organization [facility] Address 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
--- OUTSIDE RECORDS SUMMARY | 2025-03-07 15:27 | XMS_ITS | Encounter Summary ---
Author Organization [facility] Address 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
--- OUTSIDE RECORDS SUMMARY | 2025-03-07 15:27 | XMS_ITS | Encounter Summary ---
Author Organization [facility] Address 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
--- OUTSIDE RECORDS SUMMARY | 2025-03-07 15:28 | XMS_ITS | Clinical Summary ---
Author Organization [facility] Address [address] [place] [address] Care Team Providers Care Pallet Sorter Name Role Phone Alonso Silva DO Primary Care Provider Allergies No known active allergies Medications dicyclomine (BENTYL) 20 mg Oral Tab Take 1 Tab by mouth 4 times daily. 60 Tab 1 8 Active sertraline (ZOLOFT) 100 mg Oral Tab Take 1 Tab by mouth daily. 30 Tab 6 9 Active mometasone (NASONEX) 50 mcg/Actuation Both Nostril [place] Administer 2 Sprays in each nostril daily. 1 Container 3 0 Active methylPREDNISol one (MEDROL DOSPACK) 4 mg Oral DsPk Take by mouth. As directed 1 Package 0 0 Active ALPRAZolam (XANAX) 0.25 mg Oral tablet Take 1 Tab by mouth 3 times daily as needed for Anxiety. 45 Tab 1 3 Active Active Problems Problem Noted Date Diagnosed Date Other specified episodic mood disorder 8 Family History Medical History Relation Name Comments Healthy Brother Depression Father Heart Disease Maternal Grandfather High Cholesterol Maternal Grandfather Hypertension Maternal Grandfather Diabetes Maternal Grandmother Healthy Mother Heart Disease Paternal Grandfather High Cholesterol Paternal Grandfather Hypertension Paternal Grandfather Healthy Paternal Grandmother Relation Name Status Comments Brother Alive Father Alive Maternal Grandfather Maternal Grandmother Mother Alive Paternal Grandfather Paternal Grandmother Social History Tobacco Use Types Packs/Day Years Used Date Smoking Tobacco: Never Alcohol Use Standard Drinks/Week Comments No 0 (1 standard drink = 0.6 oz pur e alcohol) Comments No Sex and Gender Information Value Date Recorded Sex Assigned at Not on file 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 Gender Identity Not on file Sexual Orientation Not on file Last Filed Vital Signs Vital Sign Reading Time Taken Comments Blood Pressure 122/62 06/25/2010 1:00 PM CDT Pulse - - Temperature - - Respiratory Rate - - Oxygen Saturation - - Inhaled Oxygen Concentration - - Weight 56.7 kg (125 lb) 06/27/2010 2:43 PM CDT Height - - Body Mass Index - - Plan of Treatment Health Maintenance Due Date Last Done Comments DTAP/TDAP/TD VACCINES (1 - Tdap) 1995 HEPATITIS B VACCINES (1 of 3 - 19+ 3-dose series) 02/27 HPV/Cotest (21-29) 1997 HPV/Cotest (30-65) 2006 CERVICAL CANCER SCREENING 07/24/2010 PAP SMEAR 07/24/2010 07/24/2007 BREAST CANCER SCREENING 2016 COLORECTAL SCREENING 2021 Colorectal Cancer Screening 2021 FIT-DNA Q 3 years 2021 FIT/FOBT Q 1 year 2021 Flex Sig/CT Colonography Q 5 years 2021 INFLUENZA VACCINE (#1) 2024 Insurance Care Teams Pallet Sorter Relationship Specialty Start Date End Date Alonso Silva DO PCP - General 06/15/09
== END 2025-03-07 14:08 | disposition home or self-care (01) ==
LOC: CHSIMG 14:09
PROVIDERS: PCP Hospitalist; Visit Provider Nurse Practitioner Family
DX: Z12.31 Encounter for screening mammogram for malignant neoplasm of breast (principal); R92.8 Other abnormal and inconclusive findings on diagnostic imaging of breast
CPT/HCPCS: 77063; 77067

== ENCOUNTER 2025-03-14 09:03 | Outpatient (CLI) | payer BC, SELFPAY ==
--- NOTE | ~2025-03-14 | MMUS_ITS ---
EXAMINATION: US breast LT complete, MM diag althea implant LT w ju HISTORY: Follow-up left breast asymmetry TECHNIQUE: Additional 3-D tomosynthesis images of the left breast were performed and synthetic 2-D im ages were generated. CAD analysis was submitted and interpreted. High resolution complete left breast ultrasound was performed. COMPARISON: 03/07/2025 BREAST PARENCHYMAL COMPOSITION: Dense: The breasts are extremely dense, which lowers the sensitivity of mammography. FINDINGS: MAMMOGRAPHIC FINDINGS: There are no suspicious masses, calcifications or architectural distortion in the left breast to sugg est malignancy. ULTRASOUND: Complete US of all 4 quadrants of the left breast/s and retroareolar region was reviewed. Normal hete rogeneous echotexture without focal solid or cystic mass. No sonographic evidence for malignancy. IMPRESSION: 1. No evidence for malignancy in the left breast. 2. Routine yearly screening mammogram and regular clinical breast examination are recommended. BI-RADS Category 1: Negative Reviewed, dictated and finalized at location A. IMPRESSION: 1. No evidence for malignancy in the left breast. 2. Routine yearly screening mammogram and regular clinical breast examination a re recommended. BI-RADS Category 1: Negative
--- OUTSIDE RECORDS SUMMARY | 2025-03-14 09:35 | XMS_ITS | Encounter Summary ---
Author Organization [facility] Address [address] [place] [address] Care Team Providers Care Java Portal Developer Name Role Phone Alonso Silva DO Primary Care Provider Encounter Details Date Type Department Care Team (Late st Contact Info) Description 07/24/2008 Outpatient [facility] 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
--- OUTSIDE RECORDS SUMMARY | 2025-03-14 09:35 | XMS_ITS | Clinical Summary ---
Author Organization [facility] Address [address] [place] [address] Phone Care Team Providers Care Scientist Electronics Name Role Phone Provider, None Primary Care [...] Comments Blood Pressure 96/72 09/06/2020 3:55 PM EMERGENCY CARE ATTENDANT Pulse 63 09/06/2020 3:55 PM EMERGENCY CARE ATTENDANT Temperature 36.4 C (97.6 F) 09/06/2020 3:55 PM EMERGENCY CARE ATTENDANT Respiratory Rate - - Oxygen Saturation 95% 09/06/2020 3:55 PM EMERGENCY CARE ATTENDANT Inhaled Oxygen Concentration - - Weight - [...] age to complete this topic Insurance SHARED half backer Care Teams Scientist Electronics Relationship Specialty Start Date End Date Provider, Doreen GUPTA PCP - General 09/06/20
--- OUTSIDE RECORDS SUMMARY | 2025-03-14 09:35 | XMS_ITS | Clinical Summary ---
Author Organization [address] Address [address] [place] [address] Care Team Providers Care Tooling Manager Name Role Phone Waqar Renae MD Primary Care Provider [phone] Allergies No known active allergies Medications apremilast [...] Encounters Date Type Department Care Team Description 03/09/2025 Results [facility] [address] [address] Waqar Renae MD [facility] 03/08/2025 Orders Only [facility] [address] [address] ProviderNicko MD 02/25/2025 12:00 PM CDT Office Visit [facility] [address] [place] [address] Kelly Santiago NP Sore throat (Primary [...] on file 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 Gender Identity Not on file Sexual [...] Health Maintenance Due Date Last Done Comments Cervical Cancer Screening 1976 Colon Cancer Screening-DNA Stool 1976 Hepatitis C Screening 1976 DTaP/Tdap/Td Vaccine (1 - Tdap) 1987 Hepatitis B Screening 1994 Regular Well Visit/Exam 18-64 1994 Depression Screening 12/16/2022 12/16/2021 Covid-19 Vaccine (3 - 2023-2 5 season) 2024 11/04/2021, 11/30/2020 Influenza Vaccine (Season Ended) 2025 Breast Cancer Screening-Mammogram 03/07/2026 03/07/2025 Pneumococcal vaccine <65 Aged Out No longer eligible based on patient's age to complete this topic Procedures Procedure Name Priority Date/Time Associated Diagnosis Comments HM MAMMOGRAPHY Routine 03/07/2025 4:53 PM CDT POCT RAPID STREP Routine 02/25/2025 12:0 7 PM CDT Sore throat from Last 3 Months Results * HM MAMMOGRAPHY (03/07/2025 4:53 PM CDT) Historical Provider HEALTH MAINTENANCE Edited Result - Final * POCT rapid strep A (02/25/2025 12:07 PM CDT) Rapid Strep A, POC Negative Negative Swab 02/25/2025 12:0 7 PM CDT Kelly Santiago NP POINT OF CARE TEST WINIFRED JUAREZ Final Result from Last 3 Months Insurance [facility] Care Teams Tooling Manager Relationship Specialty Start Date End Date Waqar Renae MD [address] [place] [address] PCP - General Family Medicine 09/17/21
--- OUTSIDE RECORDS SUMMARY | 2025-03-14 09:35 | XMS_ITS | Encounter Summary ---
Author Organization [facility] Address 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
--- OUTSIDE RECORDS SUMMARY | 2025-03-14 09:35 | XMS_ITS | Encounter Summary ---
Author Organization [facility] Address [address] [place] [address] Care Team Providers Care Ships Or Barges Loader Name Role Phone Alonso Silva DO Primary Care Provider Encounter Details Date Type Department Care Team (Latest Contact Info) Description 01/12/2002 Outpatient Historical HIS PATIENT IN A BED [facility] [place], [place] [address] [facility] [address] [place], [place] [id number] ANTEPARTUM HEMORR NOS-ANTEPAR (Primary Dx) Social History Tobacco Use Types Packs/Day Years Used Date Smoking Tobacco: Never Assessed Comments Unknown Sex and Gender Information Value Date Recorded Sex Assigned at Not on file 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
--- OUTSIDE RECORDS SUMMARY | 2025-03-14 09:35 | XMS_ITS | Encounter Summary ---
Author Organization [facility] Address [address] [place] [address] Care Team Providers Care Production Line Welder Name Role Phone Alonso Silva DO Primary Care Provider Encounter Details Date Type Department Care Team (Latest Contact Info) Description 04/19/2002 Inpatient Historical HIS PATIENT IN A BED [facility], [place] [address] [facility] [address] [place], [place] [id number] OTHER CURR COND-DELIVERED (Primary Dx) Social History Tobacco Use Types Packs/Day Years Used Date Smoking Tobacco: Never Assessed Comments Unknown Sex and Gender Information Value Date Recorded Sex Assigned at Not on file 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
--- OUTSIDE RECORDS SUMMARY | 2025-03-14 09:35 | XMS_ITS | Encounter Summary ---
Author Organization [facility] Address [address] [place] [address] Care Team Providers Care Burling And Joining Supervisor Name Role Phone Alonso Silva DO Primary Care Provider Encounter Details Date Type Department Care Team (Latest Contact Info) Description 01/08/2007 Outpatient Historical HIS [facility] D[facility] [place], [place] [address] [place] [address] Lump or Mass in Breast (Primary Dx) Social History Tobacco Use Types Packs/Day Years Used Date Smoking Tobacco: Never Assessed Comments Unknown Sex and Gender Information Value Date Recorded Sex Assigned at Not on file 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
--- OUTSIDE RECORDS SUMMARY | 2025-03-14 09:35 | XMS_ITS | Encounter Summary ---
Author Organization [facility] Address 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
--- OUTSIDE RECORDS SUMMARY | 2025-03-14 09:35 | XMS_ITS | Referral Summary ---
Author Organization [address] Address [address] [place] [address] [place] [address] Care Team Providers Care Medical Insurance Coding Specialist Name Role Phone Waqar Renae MD Primary Care Provider [phone] Encounters Date Type Department Care Team Description 03/09/2025 Results [facility] [address] [address] Waqar Renae MD [facility] 03/08/2025 Orders Only [facility] [address] [address] Provider, MD Nicko 02/25/2025 12:00 PM CDT Office Visit [facility] at [address] [place] [address] Kelly Santiago, LYRIC Sore throat (Primary Dx) from Last 3 [...] on file 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
--- OUTSIDE RECORDS SUMMARY | 2025-03-14 09:35 | XMS_ITS | Encounter Summary ---
Author Organization [facility] Address 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
--- OUTSIDE RECORDS SUMMARY | 2025-03-14 09:35 | XMS_ITS | Encounter Summary ---
Author Organization [facility] Healthcare Address [address] [place] [address] Care Team Providers Care Foreign Collection Clerk Name Role Phone Waqar Renae MD Primary Care Provider [phone] Reason for Referral * Diagnostic Imaging (Routine) - Authorized Specialty Diagnoses / Procedures Referred By Gena conway Referred To Contact Diagnoses Abnormal mammogram of left breast Procedures Diagnostic Mammogram Left W Waqar Layne MD [address] [place], [place] [address] [address] Phone: tel: fax: External Order Referral ID Status Reason Start Date Expiration Date V isits Requested Visits Authorized [id number] Authorized 03/09/2025 04/08/2026 1 1 * Diagnostic Imaging (Routine) - Pending Review Specialty Diagnoses / Procedures Referred By Gena conway Referred To Contact Diagnoses Abnormal mammogram of left breast Procedures US Breast Left Complete Waqar Renae MD [address] [place], [place] [address] [address] Phone: tel: fax: External Order Referral ID Status Reason Start Date Expiration Date V isits Requested Visits Authorized [id number] Pending Review 03/09/2025 04/08/2026 1 1 Encounter Details Date Type Department Care Team (Late st Contact Info) Description 03/09/2025 Results [facility] [address] [address] Waqar Renae MD [address] [place] [address] MAMMOGRAPHY Social History Tobacco Use Types Packs/Day Years [...] on file 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 Gender Identity Not on file Sexual Orientation Not on file documented as of this encounter Plan of Treatment Scheduled Orders Name Type Priority Associated Diagnoses Orde r Schedule US Breast Left Complete Imaging Schedule Routine, Read Routine (OP Routine) Abnormal mammogram of left breast Expected: 03/09/2025, Expires: 05/09/2026 Diagnostic Mammogram Left W Reynaldo Imaging Schedule Routine, Read Routine (OP Routine) Abnormal mammogram of left breast Expected: 03/09/2025, Expires: 05/09/2026 documented as of this encounter Visit Diagnoses Diagnosis Abnormal mammogram of left breast- Primary documented in this encounter Care Teams Foreign Collection Clerk Relationship Specialty Start Date End Date Waqar Renae MD [address] [place] [address] PCP - General Family Medicine 09/17/21 documented as of this encounter
--- OUTSIDE RECORDS SUMMARY | 2025-03-14 09:36 | XMS_ITS | Encounter Summary ---
Author Organization [employer] Address [address] [place] [address] Care Team Providers Care Associate Professor Of Literature Name Role Phone Alonso Silva DO Primary Care Provider Encounter Details Date Type Department Care Team (Latest Contact Info) Description 05/27/2000 Inpatient Historical HIS PATIENT IN A BED [facility], [place] [address] 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
--- OUTSIDE RECORDS SUMMARY | 2025-03-14 09:36 | XMS_ITS | Encounter Summary ---
Author Organization [facility] Address [address] [place] [address] Care Team Providers Care Timber Framer Helper Name Role Phone Alonso Silva DO Primary Care Provider Encounter Details Date Type Department Care Team (Latest Contact Info) Description 07/30/2003 Inpatient Historical HIS PATIENT IN A BED [facility], [place] [address] [facility] [address] [place], [place] [id number] EXCESS GRTH-DELIVERED (Primary Dx) Social History Tobacco Use Types Packs/Day Years Used Date Smoking Tobacco: Never Assessed Comments Unknown Sex and Gender Information Value Date Recorded Sex Assigned at Not on file 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
--- OUTSIDE RECORDS SUMMARY | 2025-03-14 09:36 | XMS_ITS | Encounter Summary ---
Author Organization [facility] Address 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 Gender Identity Not on file Sexual Orientation [...] ORDERAB LES Final Result Performing Organization Address [facility] de Phone Number INTERFACE SYSTEM Refer to [...] ORDERABLES Final Resu lt Performing Organization Address [facility] Co de Phone Number INTERFACE SYSTEM Refer [...] ORDERABLES Final Resu lt Performing Organization Address City/[facility] Co de Phone Number INTERFACE SYSTEM Refer to clinic/hospital department * HEMOGLOBIN AND HEMATOCRIT (05/14/2006 8:06 PM CDT) HEMOGLOBIN 12.7 11.8 - 14.8 g/dL INTERFACE SYSTEM HEMATOCRIT 38.1 35.5 - 44.0 % INTERFACE SYSTEM 05/14/2006 8:06 PM CDT Tennille Nestor HEMATOLOGY ORDERABLES Final Resu lt Performing Organization Address City/[facility] Co de Phone Number INTERFACE SYSTEM Refer to clinic/hospital department * POC , URINE (05/14/2006 9:16 AM CDT) HCG QUAL URINE Negative Negative INTER FACE SYSTEM SPECIFIC GRAVITY UA 1.020 1.001 - 1.035 INTERFACE SYSTEM 05/14/2006 9:16 AM CDT Marcella Dunbar MD POINT OF CARE TEST ING Final Result Performing Organization Address [facility] Co de Phone Number INTERFACE SYSTEM Refer [...] prolapse documented in this encounter Care Teams Director Mobile Media [employer] Relationship Specialty Start Date End Date Alonso Silva DO PCP - General 06/15/09 documented as of this encounter
--- OUTSIDE RECORDS SUMMARY | 2025-03-14 09:36 | XMS_ITS | Encounter Summary ---
Author Organization [facility] Address 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
--- OUTSIDE RECORDS SUMMARY | 2025-03-14 09:36 | XMS_ITS | Encounter Summary ---
Author Organization [facility] Address [address] [place] [address] Care Team Providers Care Condenser Winder Name Role Phone Alonso Silva DO Primary Care Provider Encounter Details Date Type Department Care Team (Latest Contact Info) Description 10/10/1999 Outpatient Historical HIS [facility] [place] II, [place] [address] [facility] [address] [place] [address] Supervision of other normal (Primary Dx) Social History Tobacco Use Types Packs/Day Years Used Date Smoking Tobacco: Never Assessed Comments Unknown Sex and Gender Information Value Date Recorded Sex Assigned at Not on file 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
--- OUTSIDE RECORDS SUMMARY | 2025-03-14 09:36 | XMS_ITS | Encounter Summary ---
Author Organization [facility] Address [address] [place] [address] Care Team Providers Care Rotary Planer Set Up Operator Name Role Phone Alonso Silav DO Primary Care Provider Encounter Details Date Type Department Care Team (Latest Contact Info) Description 04/27/2000 Outpatient Historical HIS LAB,NON-PATIENT Julissa II, [place] [address] [facility] [address] [place], [place] [id number] Supervision of other normal (Primary Dx) Social History Tobacco Use Types Packs/Day Years Used Date Smoking Tobacco: Never Assessed Comments Unknown Sex and Gender Information Value Date Recorded Sex Assigned at Not on file 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
--- OUTSIDE RECORDS SUMMARY | 2025-03-14 09:36 | XMS_ITS | Encounter Summary ---
Author Organization [facility] Address [address] [place] [address] Care Team Providers Care Assistant Auditor Name Role Phone Alonso Silva DO Primary Care Provider Encounter Details Date Type Department Care Team (Latest Contact Info) Description 06/21/2003 Outpatient Historical HIS PATIENT IN A BED [place], Marcella Smiley [place] [address] [facility] [address] [place] [address] THRT NILSA LABOR-ANTEPART (Primary Dx) Social History Tobacco Use Types Packs/Day Years Used Date Smoking Tobacco: Never Assessed Comments Unknown Sex and Gender Information Value Date Recorded Sex Assigned at Not on file 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
--- OUTSIDE RECORDS SUMMARY | 2025-03-14 09:36 | XMS_ITS | Encounter Summary ---
Author Organization [employer] Address [address] [place] [address] Care Team Providers Care Director Of Customer Service Name Role Phone Alonso Silva DO Primary Care Provider Encounter Details Date Type Department Care Team (Late st Contact Info) Description 06/21/2004 Outpatient Historical HIS [facility] Glenn Sung MD [address] [place] [address] Social History Tobacco Use Types Packs/Day Years Used Date Smoking Tobacco: Never Assessed Comments Unknown Sex and Gender Information Value Date Recorded Sex Assigned at Not on file Legal Sex Female 2:59 AM OUTSIDE ENERGY SALES REPRESENTATIVES Gender Identity Not on file Sexual Orientation Not on file documented as of this encounter Plan of Treatment Not on file documented as of this encounter Visit Diagnoses Not on filedocumented in this encounter Care Teams Director Of Customer Service Relationship Specialty Start Date End Date Alonso Silva DO PCP - General 06/15/09 documented as of this encounter
--- OUTSIDE RECORDS SUMMARY | 2025-03-14 09:36 | XMS_ITS | Encounter Summary ---
Author Organization [facility] Address [address] [place] [address] Care Team Providers Care Biomedical Field Service Engineer Name Role Phone Alonso Silva DO Primary Care Provider Encounter Details Date Type Department Care Team (Late st Contact Info) Description 07/01/2000 Outpatient Historical HIS [facility] Glenn Sung MD [address] [place] [address] Social History Tobacco Use Types Packs/Day Years Used Date Smoking Tobacco: Never Assessed Comments Unknown Sex and Gender Information Value Date Recorded Sex Assigned at Not on file Legal Sex Female 2:59 AM COSTUMING SUPERVISOR Gender Identity Not on file Sexual Orientation Not on file documented as of this encounter Plan of Treatment Not on file documented as of this encounter Visit Diagnoses Not on filedocumented in this encounter Care Teams Biomedical Field Service Engineer Relationship Specialty Start Date End Date Alonso Silva DO PCP - General 06/15/09 documented as of this encounter
--- OUTSIDE RECORDS SUMMARY | 2025-03-14 09:36 | XMS_ITS | Encounter Summary ---
Author Organization [facility] Address 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
--- OUTSIDE RECORDS SUMMARY | 2025-03-14 09:36 | XMS_ITS | Encounter Summary ---
Author Organization [facility] Address 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
--- OUTSIDE RECORDS SUMMARY | 2025-03-14 09:36 | XMS_ITS | Encounter Summary ---
Author Organization [facility] Address [address] [place] [address] Care Team Providers Care Paper Bag Making Machinist Name Role Phone Alonso Silva DO Primary Care Provider Encounter Details Date Type Department Care Team (Latest Contact Info) Description 02/28/2000 Outpatient Historical [facility], [place] [address] [facility] [address] [place] [address] Abnormal maternal glucose tolerance, complicating , childbirth, or the puerperium, unspecified as to episode of care (Primary Dx) Social History Tobacco Use Types Packs/Day Years Used Date Smoking Tobacco: Never Assessed Comments Unknown Sex and Gender Information Value Date Recorded Sex Assigned at Not on file Legal Sex Female 2:59 AM MEDICAL SALES ASSOCIATE Gender Identity Not on file Sexual Orientation Not on file documented as of this encounter Plan of Treatment Not on file documented as of this encounter Visit Diagnoses Diagnosis Abnormal maternal glucose tolerance, complicating , childbirth, or the puerperium, unspecified as to episode of care- Primary documented in this encounter Care Teams Paper Bag Making Machinist Relationship Specialty Start Date End Date Alonso Silva DO PCP - General 06/15/09 documented as of this encounter
--- OUTSIDE RECORDS SUMMARY | 2025-03-14 09:36 | XMS_ITS | Encounter Summary ---
Author Organization [facility] Address [address] [place] [address] Care Team Providers Care Diesel Fleet Mechanic Name Role Phone Alonso Silva DO Primary Care Provider Encounter Details Date Type Department Care Team (Latest Contact Info) Description 06/21/2004 Outpatient Historical HIS [facility] Glenn Byrne MD [address] [place] [address] LOSS OF WEIGHT (Primary Dx) Social History Tobacco Use Types Packs/Day Years Used Date Smoking Tobacco: Never Assessed Comments Unknown Sex and Gender Information Value Date Recorded Sex Assigned at Not on file Legal Sex Female 2:59 AM WATER/WASTEWATER PROJECT ENGINEER Gender Identity Not on file Sexual Orientation Not on file documented as of this encounter Plan of Treatment Not on file documented as of this encounter Visit Diagnoses Diagnosis Loss of weight- Primary documented in this encounter Care Teams Diesel Fleet Mechanic Relationship Specialty Start Date End Date Alonso Silva DO PCP - General 06/15/09 documented as of this encounter
--- OUTSIDE RECORDS SUMMARY | 2025-03-14 09:36 | XMS_ITS | Clinical Summary ---
Author Organization [facility] Address [address] [place] [address] Care Team Providers Care Supervisor Counseling And Guidance Name Role Phone Alonso Silva DO Primary Care Provider Allergies No known active allergies Medications dicyclomine (BENTYL) 20 mg Oral Tab Take 1 Tab by mouth 4 times daily. 60 Tab 1 8 Active sertraline (ZOLOFT) 100 mg Oral Tab Take 1 Tab by mouth daily. 30 Tab 6 9 Active mometasone (NASONEX) 50 mcg/Actuation Both Nostril [place] Administer 2 Sprays in each nostril daily. [...] on file Legal Sex Female 2:59 AM PRINTED CIRCUIT BOARDS INSPECTOR Gender Identity Not on file Sexual Orientation [...] INFLUENZA VACCINE (#1) 2024 Insurance Care Teams Supervisor Counseling And Guidance Relationship Specialty Start Date End Date Alonso Silva DO PCP - General 06/15/09
--- OUTSIDE RECORDS SUMMARY | 2025-03-14 09:36 | XMS_ITS | Clinical Summary ---
Author Organization [facility] [employer] Address [address] [place] [address] Care Team Providers Care Bicycle Service Technician Name Role Phone Alonso Silva DO Primary Care Provider Source Comments [facility] [employer],non-owned Affiliates and Associated Physician Practices is amultiple site organization consisting of ambulatory clinics and hospital sitesin [place], [place], [place] and [place]. This disclosure is being madepursuant to the Care Everywhere program and may not contain all information available regarding this patient. Last updated 18.[facility] [employer] Allergies No known active allergies Medications * [...] on file Legal Sex Female 1:08 PM CRIME LAB ANALYST Gender Identity Not on file Sexual Orientation [...] SCREENING 1976 LIPID TESTING 1976 MAMMOGRAM 1976 HIV SCREENING 1991 HEPATITIS C SCREENING 03/13/1994 DTAP/TDAP/TD VACCINES (1 - Tdap) 1995 HEPATITIS B VACCINE (1 of 3 - 19+ 3-dose series) 1995 PAP SMEAR 1997 COVID-19 VACCINE ( - 2023-2 5 season) [...] WANG Subscriber ID:Not on file (Home) Address: [address] [place] [id number] Payer ID:Not on file Group ID:Not on file Type:Self Pay Address: [place], [place] [employer] Member Subscriber Plan / Payer (Ef fective for All Dates) Name:Kellen Wang Susan Relation to Subscriber:Self Name:Kellen Wang Susan Payer ID:[id number] (NAIC) Group ID:[id number] Type:PPO SELF PAY NO INSURANCE Member Subscriber Plan / Payer (Ef fective for All Dates) Name:Kellen Wang Susan Member ID:Not on file Relation to Subscriber:Not on file Name:KELLEN WANG Subscriber ID:Not on file (Home) Address: [address] [place] [phone] Payer ID:Not on file Group ID:Not on file Type:Self Pay Address: [place], [place] [employer] Member Subscriber Plan / Payer (Ef fective for All Dates) Name:Kellen Wang Susan Relation to Subscriber:Self Name:Kellen Wang Susan Payer ID:[id number] (NAIC) Group ID:[id number] Type:PPO SELF PAY NO INSURANCE Member Subscriber Plan / Payer (Ef fective for All Dates) Name:Kellen Wang Member ID:Not on file Relation to Subscriber:Not on file Name:KELLEN WANG Subscriber ID:Not on file (Home) Address: [address] [place] [phone] Payer ID:Not on file Group ID:Not on file Type:Self Pay Address: [place], [place] Care Teams Bicycle Service Technician Relationship Specialty Start Date End Date Alonso Silva DO [address] [place] [id number] PCP - General Internal Medicine 08/28/16
--- OUTSIDE RECORDS SUMMARY | 2025-03-14 09:36 | XMS_ITS | Encounter Summary ---
Author Organization [facility] Address [address] [place] [address] Care Team Providers Care Game Breeding Farm Manager Name Role Phone Alonso Silva DO Primary Care Provider Encounter Details Date Type Department Care Team (Latest Contact Info) Description 03/18/2000 Outpatient Historical [facility] [place], [place] [address] [place] [address] Supervision of other normal (Primary Dx) Social History Tobacco Use Types Packs/Day Years Used Date Smoking Tobacco: Never Assessed Comments Unknown Sex and Gender Information Value Date Recorded Sex Assigned at Not on file Legal Sex Female 2:59 AM COLLECTION SYSTEMS TECHNICIAN Gender Identity Not on file Sexual Orientation Not on file documented as of this encounter Plan of Treatment Not on file documented as of this encounter Visit Diagnoses Diagnosis Supervision of other normal - Primary documented in this encounter Care Teams Game Breeding Farm Manager Relationship Specialty Start Date End Date Alonso Silva DO PCP - General 06/15/09 documented as of this encounter
== END 2025-03-14 09:04 | disposition home or self-care (01) ==
PROVIDERS: PCP Hospitalist; Visit Provider Nurse Practitioner Family
DX: R92.8 Other abnormal and inconclusive findings on diagnostic imaging of breast (principal)
CPT/HCPCS: 76641; 77061; 77065; G0279